=== PATIENT | female | born 1945 | race Caucasian/White ===

== ENCOUNTER 2018-07-14 07:54 | Outpatient (CLI) | payer MEDICARE, OTHER, SELFPAY ==
[2018-07-14] VITALS (7 sets, daily range): BP systolic 130–156; BP diastolic 61–80; PULSE 71–75; RESP 10–18; TEMP 36; O2SAT 95–100
--- NOTE | 2018-07-14 07:56 | DI.RAD.S_ITS ---
PROCEDURE: PAIN L/S TRANSFORAMINAL INJECT INDICATIONS: INTERVERTEBRAL DISC DEGENERATION FINDINGS: Fluoroscopic spot filming was performed to verify placement of spinal needles at the L4-L5 level(s), as labeled on the films. Appropriate location(s) of the needle tip(s) was confirmed by injection of iodinated contrast. Dictated by: Amilcar Drake M.D. on 07/14/2018 at 14:08 Approved by: Amilcar Drake M.D. on 07/14/2018 at 14:09
[2018-07-14] MEDS: MIDAZOLAM 5 MG/5 ML VIAL IV (09:10)
[2018-07-14] MEDS: methylPREDNISolone acetate 80 MG/ML VIAL INJ (09:20)
[2018-07-14] MEDS: BUPIVACAINE 0.25% (PF) VIAL 2 ML INJ (09:20)
[2018-07-14] MEDS: DEXAMETHASONE 10 MG/ML VIAL 20 MG INJ (09:20)
[2018-07-14] MEDS: IOPAMIDOL 15 ML VIAL 3 ML INJ (09:20)
--- NOTE | 2018-07-14 09:29 | P.PCN_ITS ---
Procedures Date/Time Date of procedure: 07/14/18 Time of procedure: 09:28 General Procedure description: PREOP DIAGNOSIS 1. FORMAINAL STENOSIS WITH LE SYMPTOMS POST OP DIAGNOSIS 1. FORMAINAL STENOSIS WITH LE SYMPTOMS PROCEDURES 1. FLUOROSCOPICALLY GUIDED CONTRAST CONTROLLED TRANSFORAMINAL EPIDURAL STEROID INJECTION - LEFT L4/5 PHYSICIAN: Naif Martinez DO INDICATIONS: Ashley is referred by for treatment of Foraminal Stenosis with Left LE Symptoms FINDINGS Foraminal Nerve Root Compression secondary to disc disease and facet hypertrophy DESCRIPTION OF PROCEDURE: Following denial of allergy and review of potential side effects and complications, including, but not necessarily limited to, infection, allergic reaction, local tissue breakdown, stroke, temporary or permanent nerve injury, paralysis, and possible , the patient indicated that the patient understood and agreed to proceed. An informed consent document was signed by the patient, witnessed by a nurse, and placed in the patient's chart. Additionally, other treatment options including medications, modalities, and physical therapy were reviewed with the patient. After review of previous anaesthesic history and IV conscious sedation the patient was deemed safe to proceed with todays procedure with IV conscious sedation as ASA class II designation. Safety time-out was performed to confirm patient ID, procedure to be performed and site of procedure. IV sedation was accomplished with a combination of 4mg of Versed administered by the RN after DO order, titrated to patient comfort during the course of the procedure while the patient remained responsive to all verbal commands In the prone position following sterile prep and drape of the lumbar region, the left L4/5 posterior neuroforamen was identified fluoroscopically. The skin was anesthetized via a 25-gauge 1.5-inch needle with 1% lidocaine solution. At this point, a 25-gauge 3.5-inch spinal needle was atraumatically introduced and advanced under fluoroscopic guidance through the posterior left L4/5 neuroforamen to approximately the anterior aspect of the canal. Depth was confirmed on lateral view. Following negative aspiration, injection of approximately 1.5 cc of Isovue 200 under live fluoroscopy in the AP view confirmed excellent flow along the nerve root, into the epidural space without vascular or intrathecal uptake observed Radiological data, including multiple fluoroscopic views of the lumbosacral spine, reveal a spinal needle at the left L4/5 posterior neuroforamen. Subsequent views show flow of contrast material flowing superiorly and inferiorly along the nerve root confirming epidural flow. Subsequently, a test dose of 1.5 cc of 1% lidocaine solution was administered and patient was observed for two minutes for signs or symptoms of complications , including abdominal pain, shortness of breath, bilateral upper or lower extremity weakness, nausea and vomiting, prior to steroid injection. At this point, a total of 3 cc or 20 mg of dexamethasone and 80mg Depo Medrol was injected without incident. The procedure tolerated the procedure well without signs or symptoms of complications prior to transfer to the recovery area continued monitoring without incident. The patient was then transferred to the recovery area where they were observed for an appropriate time after the injection. The patient reported a VAS score of 7 prior to the procedure and a post- procedure VAS of 0. Total Fluoroscopy Time: 20.9 seconds Total Conscious Sedation Time: 24min POST OP INSTRUCTIONS The patient was provided a Pain Log to continue to record their response to the target-specific procedure prior to follow-up visit with their referring physician. Additionally, specific post-injection care instructions and a contact number to our office were provided if concerns arise regarding possible complications associated with the procedure are suspected. Naif Martinez DO Complications: none
--- NOTE | 2018-07-14 09:35 | PC.NURSE ---
accepted care of pt in post proc room. pt in stable condition
--- NOTE | 2018-07-14 09:39 | PC.NURSE ---
pt finished and helped off the table at 0928, pt alert and able to get off table with minimal assist. taken to pre procedure room where continued monitoring with Tuyet THOMPSON
--- NOTE | 2018-07-15 17:18 | PC.NURSE ---
Follow up call made for one day post injection. I didn't talk to the patient as she had already left to go get her nails done but her said she has been reporting 0/10 pain since the injection yesterday. He did say she wrote in the margins of her pain log that mornings are always more painful for her but not this morning apparently.
== END 2018-07-14 10:09 | disposition home or self-care (01) ==
LOC: RAD 07:55
PROVIDERS: PCP Family Medicine; Visit Provider Physical Medicine & Rehabilitation
DX: M48.061 Spinal stenosis, lumbar region without neurogenic claudication (principal); M51.16 Intervertebral disc disorders with radiculopathy, lumbar region; M47.27 Other spondylosis with radiculopathy, lumbosacral region; M99.83 Other biomechanical lesions of lumbar region
CPT/HCPCS: 64483; 99152; J1040; J1100; J2250

== ENCOUNTER 2018-09-08 09:50 | Outpatient (CLI) | payer MEDICARE, OTHER, SELFPAY ==
[2018-09-08] VITALS (9 sets, daily range): BP systolic 119–158; BP diastolic 41–81; PULSE 67–73; RESP 16–18; TEMP 36.2; O2SAT 92–97
--- NOTE | 2018-09-08 | DI.RAD.S_ITS ---
PROCEDURE: PAIN SI JOINT INJECTION INDICATIONS: INTERVERTEBRAL DISC DEGENERATION FINDINGS: Fluoroscopic spot filming was performed to verify placement of spinal needles at the left sacroiliac joint level(s), as labeled on the films. Appropriate location(s) of the needle tip(s) was confirmed by injection of iodinated contrast. Dictated by: Amilcar Drake M.D. on 09/08/2018 at 11:25 Approved by: Amilcar Drake M.D. on 09/08/2018 at 11:28
[2018-09-08] MEDS: MIDAZOLAM 5 MG/5 ML VIAL IV (10:30)
[2018-09-08] MEDS: BUPIVACAINE 0.5% (PF) VIAL 2 ML INJ (10:34)
[2018-09-08] MEDS: IOPAMIDOL 15 ML VIAL 3 ML INJ (10:34)
[2018-09-08] MEDS: BETAMETHASONE 30 MG/5 ML MDV 12 MG INJ (10:35)
--- NOTE | 2018-09-08 10:37 | PC.NURSE ---
assisting pt off table and transporting to post proc area in stable condition
--- NOTE | 2018-09-08 10:44 | P.PCN_ITS ---
Procedures Date/Time Date of procedure: 09/08/18 Time of procedure: 10:43 General Procedure description: PREOP Dx: Sacroiliac joint pain/DJD POST OP DX: Sacroiliac Joint Pain/DJD Procedures: Fluoroscopic guided contrast controlled left sacroiliac joint injection Physician: Naif Martinez D.O. Indications: Ashley is referred by for treatment of left sacroiliac joint DJD Description of procedure Fluoroscopic guided, contrast controlled left sacroiliac joint injection Following denial of allergies and review of potential side effects and complications, including, but not necessarily limited to, infection, allergic reaction, local tissue breakdown, temporary as well as permanent nerve injury, paralysis, stroke and possible , the patient indicated that they understood and agreed to proceed. An informed consent was signed by the patient , witnessed by a nurse, and placed in the patient's chart. Additionally, other treatment options including modalities, medications, and physical therapy were reviewed with the patient. After review of previous anaesthesic history and IV conscious sedation the patient was deemed safe to proceed with todays procedure with IV conscious sedation as ASA class II designation. Safety time-out was performed to confirm patient ID, procedure to be performed and site of procedure. IV sedation was accomplished with a combination of 5mg of Versed administered by the RN after DO order, titrated to patient comfort during the course of the procedure while the patient remained responsive to all verbal commands. In the prone position following sterile prep and drape of the pelvic region, the hyper lucency on in the inferior aspect of the left sacroiliac joint was identified fluoroscopically the skin was anesthetized be a 25 gauge 1 eventual with approximately 2 cc of 1% lidocaine solution. At this point, a 22 gauge 3 in spinal needle was atraumatically introduced and advanced under fluoroscopic guidance into the inferior aspect of the left sacroiliac joint. Following negative aspiration, approximately 0.3 cc of Isovue-300 was injected confirming intra-articular placement without vascular uptake. Radiographic data, including multiple fluoroscopic views of the pelvis, reveals a spinal needle in the left sacroiliac joint hyper lucent zone. Subsequent view show flow contrast tear superiorly and inferiorly within the joint capsule without vascular intrathecal uptake. At this point a total of 1 cc or 0 8 of 0.5% Marcaine was combined with 1 cc of 6 mg of betamethasone was injected without incident. The patient tolerated the procedure well without signs or symptoms of complications prior to transfer to the recovery area for further monitoring. The patient was then transferred to the recovery area with a bur observed for an appropriate time after the injection. The patient reverted a vas score of 7 prior to the procedure and postprocedure vas of 1. Total fluoroscopy time: 22.7 sec Total conscious sedation time: 24 min Postop instructions The patient was provided with a pain like to continue to record the patient's response to the target specific procedure prior to the patient's follow-up visit with the referring physician. Additionally, specific post injection care instructions and a contact number to our office were provided if concerns arise regarding the possible complications associated with procedure are suspected. Naif Martinez D.O. Complications: none
--- NOTE | 2018-09-08 10:48 | PC.NURSE ---
pt returnd via w/c post procedure, is awake,sleepy,and able to get from w/c with standby assist, and resumed monitoring from marisela scott.
--- NOTE | 2018-09-08 10:55 | PC.NURSE ---
sleepy, arousable with verbal,drinkin rachel tea. spouse at bs.
--- NOTE | 2018-09-08 11:02 | PC.NURSE ---
tolerating drinking and eting cookies no vomiting
--- NOTE | 2018-09-08 11:23 | PC.NURSE ---
ambulate to bathroom with steady gait,
--- NOTE | 2018-09-09 13:50 | PC.NURSE ---
FOLLOW UP CALL MADE, SPOKE WITH FAMILY MEMBER WHO SAID PT FEELING GREAT AND BACK TO HER NORMAL SELF. I ASKED FAMILY MEMBER TO REMIND HER THAT CLINIC NUMBER IS ON PAIN LOG IF SHE HAS QUESTIONS/CONCERNS BEFORE FOLLOW UP APPT.
== END 2018-09-08 11:49 | disposition home or self-care (01) ==
LOC: RAD 09:51
PROVIDERS: PCP Family Medicine; Visit Provider Physical Medicine & Rehabilitation
DX: M53.3 Sacrococcygeal disorders, not elsewhere classified (principal); M47.898 Other spondylosis, sacral and sacrococcygeal region; M47.27 Other spondylosis with radiculopathy, lumbosacral region; M51.36 Other intervertebral disc degeneration, lumbar region
CPT/HCPCS: 27096; 99152; J0702; J2250

== ENCOUNTER 2018-10-28 09:40 | Outpatient (CLI) | payer MEDICARE, OTHER, SELFPAY ==
[2018-10-28] VITALS (8 sets, daily range): BP systolic 103–146; BP diastolic 59–88; PULSE 56–65; RESP 16–18; TEMP 36; O2SAT 95–98
--- NOTE | 2018-10-28 09:44 | DI.RAD.S_ITS ---
PROCEDURE: PAIN L/SI FACET INJ/BLK 1STL INDICATIONS: SPONDYLOSIS FINDINGS: Fluoroscopic spot filming was performed to verify placement of spinal needles at the left L4, L5, S1 level(s), as labeled on the films. Appropriate location(s) of the needle tip(s) was confirmed by injection of iodinated contrast. IMPRESSION: Successful needle tip localization adjacent to the normal course of the left L4, L5, and S1 nerve roots for medial branch rhizotomy. Dictated by: Neto Neely M.D. on 10/28/2018 at 11:23 Approved by: Neto Neely M.D. on 10/28/2018 at 11:24
[2018-10-28] MEDS: MIDAZOLAM 5 MG/5 ML VIAL IV (10:28)
[2018-10-28] MEDS: LIDOCAINE 1% 20 ML INJ 10 ML INJ (10:33)
[2018-10-28] MEDS: BUPIVACAINE 0.5% (PF) VIAL 2 ML INJ (10:33)
[2018-10-28] MEDS: IOPAMIDOL 15 ML VIAL 3 ML INJ (10:34)
[2018-10-28] MEDS: BETAMETHASONE 30 MG/5 ML MDV 12 MG INJ (10:34)
--- NOTE | 2018-10-28 10:44 | PC.NURSE ---
pt tolerated procedure and was able to get off the table with standby assist. Transferred pt via wheelchair awake and alert to pre procedure room for continued monitoring with Tuyet THOMPSON.
--- NOTE | 2018-10-28 10:50 | PM.PROC.1 ---
Procedures Date/Time Date of procedure: 10/28/18 Time of procedure: 10:50 General Procedure description: POST OP DIAGNOSIS 1. FACET ARTHROPATHY PROCEDURES 1. Left L4, L5 and S1 MB BLOCKS PHYSICIAN: DO ESTELLA Little Ashley is referred by Dr. Lomax for treatment of Left Axial LBP. DESCRIPTION OF PROCEDURE Fluoroscopically guided, contrast-controlled left L4, L5 and S1 medial branch blocks with 0.5cc of 0.5% Marcaine. Following denial of allergy and review of potential side effects and complications, including, but not necessarily limited to, infection, allergic reaction, local tissue breakdown, nerve injury, paralysis, stroke and possible , the patient indicated that the patient understood and agreed to proceed. An informed consent document was signed by the patient, witnessed by a nurse, and placed in the patient's chart. After review of previous anaesthesic history and IV conscious sedation the patient was deemed safe to proceed with todays procedure with IV conscious sedation as ASA class II designation. Safety time-out was performed to confirm patient ID, procedure to be performed and site of procedure. IV sedation was accomplished with a combination of 4mg of Versed was administered by the RN after DO order, titrated to patient comfort during the course of the procedure while the patient remained responsive to all verbal commands. In the prone position, following sterile prep and drape of the lumbar region, the left L4, L5 and S1 anatomical location of the medial branch of the dorsal ramus was identified fluoroscopically. Subsequently an anesthetic skin wheal using 1% lidocaine solution was initiated at each of the anatomical spots. Subsequently then a 22-gauge 3.5-inch spinal needle was atraumatically introduced and advanced under fluoroscopic guidance at each of the corresponding sites at the left L4, L5 and S1 MB. After negative aspiration, 0.2 cc of Isovue 200 was injected, confirming placement without vascular or intrathecal uptake. Subsequently then 0.5 cc of 0.5% Marcaine solution was injected at each of the corresponding sites at the left L4, L5 and S1 medial branch locations. The patient tolerated the procedure well without signs or symptoms of complications. The patient tolerated the procedure well without signs or symptoms of complications prior to transfer to the recovery area continued monitoring without incident. Post-procedure, the patient was monitored initiating provocative activities to measure the amount of relief from block of the facetogenic pain. The patient reported a VAS of 7 prior to the procedure and a post-procedure VAS of 1. It has been a pleasure to assist in the diagnostic and therapeutic care of your patient. Total Fluoroscopy Time: 24.8 seconds Total Conscious Sedation Time: 24min POST OP INSTRUCTIONS The patient was provided with a Pain Log to complete over the next several hours and subsequent days prior to the patient's follow up with the ordering physician. If the patient has director of global talent relief to the solution applied, then they may be a candidate for medial branch rhizotomy. The patient is aware, was provided, once again, with a Pain Log and will follow up with the referring physician for review and clinical correlation Naif Martinez DO Complications: none
--- NOTE | 2018-10-28 10:53 | PC.NURSE ---
ACCEPTED CARE IN STABLE CONDITION IN POST PROC AREA.
== END 2018-10-28 11:44 | disposition home or self-care (01) ==
PROVIDERS: PCP Family Medicine; Visit Provider Physical Medicine & Rehabilitation
DX: M47.817 Spondylosis without myelopathy or radiculopathy, lumbosacral region (principal); M99.83 Other biomechanical lesions of lumbar region
CPT/HCPCS: 64493; 64494; 99152; J0702; J1100; J2250; J3010

== ENCOUNTER 2018-12-09 10:14 | Outpatient (CLI) | payer MEDICARE, OTHER, SELFPAY ==
[2018-12-09] VITALS (10 sets, daily range): BP systolic 124–147; BP diastolic 47–93; PULSE 58–76; RESP 16–18; TEMP 36.2; O2SAT 95–100
--- NOTE | 2018-12-09 10:17 | DI.RAD.S_ITS ---
PROCEDURE: PAIN L/S MED/LAT N RFA INDICATIONS: SPONDYLOSIS FINDINGS: Fluoroscopic spot filming was performed to verify placement of spinal needles at the L4, L5, S1 level(s), as labeled on the films. Appropriate location(s) of the needle tip(s) was confirmed by injection of iodinated contrast. Dictated by: Amilcar Drake M.D. on 12/09/2018 at 12:34 Approved by: Amilcar Drake M.D. on 12/09/2018 at 12:34
[2018-12-09] MEDS: fentaNYL 100 MCG/2 ML INJ 50 MCG IV (11:23)
[2018-12-09] MEDS: MIDAZOLAM 5 MG/5 ML VIAL IV (11:23)
[2018-12-09] MEDS: LIDOCAINE 1% 20 ML INJ 10 ML INJ (11:35)
[2018-12-09] MEDS: BETAMETHASONE 30 MG/5 ML MDV 12 MG INJ (11:36)
[2018-12-09] MEDS: BUPIVACAINE 0.5% (PF) VIAL 2 ML INJ (11:36)
--- NOTE | 2018-12-09 11:52 | PC.NURSE ---
ASSISTING PT OFF TABLE AND TRANSPORTING TO POST PROC AREA IN STABLE CONDITION
--- NOTE | 2018-12-09 11:55 | P.PCN_ITS ---
Procedures Date/Time Date of procedure: 12/09/18 Time of procedure: 11:54 General Procedure description: PREOP DIAGNOSIS 1. RECALCITRANT FACET ARTHROPATHY, POST OP DIAGNOSIS 1. RECALCITRANT FACET ARTHROPATHY, PROCEDURES 1. LEFTT L4 AND L5 MEDIAL BRANCH RADIOFREQUENCY NEUROTOMY AND LEFT S1 DORSAL RAMUS RADIOFREQUENCY NEUROTOMY, PHYSICIAN: DO ESTELLA Little Ashley is referred by Dr. Lomax for treatment of facet arthropathy. DESCRIPTION OF PROCEDURE Left L4 and L5 medial branch radiofrequency neurotomy and left S1 dorsal ramus branch radiofrequency neurotomy under fluoroscopy with conscious sedation. The patient is well known to this clinic having undergone previous facet injections with good but temporary relief. The patient has experienced appropriate, concordant relief with previous facet and median branch blocks but the patient's pain has been recalcitrant to further conservative measures. Therefore, based upon the patient's relief and persistent symptoms, the patient is considered an appropriate candidate for facet rhizotomy. All of the patient's questions regarding the risks versus benefits of the procedure, including, but not limited to, bleeding, infection, temporary as well as lasting nerve injury, paralysis, stroke, and , as well treatment alternatives were answered to satisfaction. After obtaining informed consent, denial of pertinent drug allergies, as well as being made aware of the potential risks of bleeding, infection, spinal cord trauma, paralysis, temporary and permanent nerve damage, seizure, stroke, and possible , the patient was brought to the fluoroscopy suite and positioned prone on the fluoroscopy table. The lumbar region was prepped with Betadine and covered with a fenestrated drape in the usual sterile fashion. Appropriate monitors applied including pulse oximeter, pulse, and blood pressure for regular monitoring throughout the procedure. IV sedation was accomplished with a combination of 4mg of Versed and 50mcg of Fentanyl titrated to patient comfort during the course of the procedure while the patient remained responsive to all verbal commands. After local infiltration using 1% lidocaine, under fluoroscopic guidance, a 10- cm RF insulated needle with a 10-mm active tip was positioned parallel to the junction of the left sacral ala and the superior articulating process where the S1 dorsal ramus resides. Needle placement was confirmed with sensory stimulation at 50 Hz, with motor stimulation of .5v on the left which produced local stimulation without radicular component. The stimulation was then increased to 1.5v with, once again, only local multifidus stimulation without radicular component. This was then followed by two discreet lesions performed at 80 degrees Celsius for 90 seconds each. The needle was then removed and the identical procedure was performed along the length of the left L5 medial branch with motor stimulation at .7v on the leftt. The identical procedure was once again performed along the length of the left L4 medial branch with motor stimulation of .5v on the left. The patient tolerated the procedure well without signs or symptoms of complications prior to transfer to the recovery area continued monitoring without incident. The patient was then transferred to the recovery area where they were observed for an appropriate period of time after the injection. The patient was then transferred to the recovery area where they were observed for an appropriate period of time after the injection. The patient reported a VAS score of 9 prior to the procedure and a post- procedure VAS of 0. Total Fluoroscopy Time: 22.7 seconds Total Conscious Sedation Time: 34min POST OP INSTRUCTIONS The patient was provided a Pain Log to continue to record the patient's response to the target-specific procedure prior to the patient's follow-up visit with the referring physician. Additionally, specific post-injection care instructions and a contact number to our office were provided if concerns arise regarding possible complications associated with the procedure are suspected. Naif Martinez, Complications: none
--- NOTE | 2018-12-09 12:02 | PC.NURSE ---
pt returned from procedure awake and alert and able to get from W/C to chair with standby assist. Resumed monitoring from Tuyet THOMPSON.
== END 2018-12-09 12:24 ==
LOC: RAD 10:16
PROVIDERS: PCP Family Medicine; Visit Provider Physical Medicine & Rehabilitation
DX: M47.817 Spondylosis without myelopathy or radiculopathy, lumbosacral region (principal)
CPT/HCPCS: 64635; 99152; 99153; J0702; J2250; J3010

== ENCOUNTER → 2020-02-25 11:04 | Outpatient (CLI) | payer MEDICARE, OTHER, SELFPAY ==
--- NOTE | 2020-02-25 11:07 | DI.MRI.S_ITS ---
PROCEDURE: MR LUMBAR SPINE WO CON INDICATIONS: Axial low back pain TECHNIQUE: Noncontrast sagittal T1 spin echo and T2 fast echo, sagittal STIR, axial T1 and T2 fast spin echo through the lumbar spine. In cases with scoliosis, additional coronal T2 fast spin echo may be performed. COMPARISON: [facility], , L-SPINE WITHOUT CONTRAST, 10/31/2016, 15:16. FINDINGS: Image quality: Excellent. Alignment and Curvature: No plain films are available for comparison, for numbering purposes. Thus, for the purposes of this examination, 5 lumbar type vertebral bodies will be presumed, as denoted on the montage panel. This should be confirmed and correlated with plain films, prior to any lumbar spinal intervention. There is mild, grade 1 retrolisthesis of L2 on L3 and L3 on L4. Mild grade 1 anterolisthesis of L4 on L5. Bone Marrow: Marrow is of normal overall signal. No acute vertebral body compression fractures. Mild reactive signal within the endplates adjacent to the L2-L3, L3-L4, and L5-S1 intervertebral discs. Spinal Cord: Conus medullaris terminates at the lower L1 level. Visualized cord demonstrates normal signal and size. Paraspinous Soft Tissues: No paravertebral masses. L1-L2: Normal appearance. L2-L3: Mild disc desiccation. No significant canal, or foraminal stenosis. No change. L3-L4: Mild disc height loss and desiccation. Mild diffuse disc bulge. Mild facet and ligamentum flavum hypertrophy. Mild canal stenosis. Mild left greater than right foraminal stenosis. No change. L4-L5: Mild disc height loss and desiccation. Mild bilateral facet hypertrophy. No significant canal, or foraminal stenosis. No change. L5-S1: Mild disc height loss. Moderate disc desiccation. Mild diffuse disc bulge. Mild bilateral facet hypertrophy. No significant canal, or foraminal stenosis. No change. IMPRESSION: 1. Multilevel degenerative disc and facet disease, as well as ligamentum flavum hypertrophy and epidural lipomatosis. 2. Multilevel mild canal and foraminal stenosis. No neural impingement. Dictated by: Ayaan Crow M.D. on 02/25/2020 at 13:20 Approved by: Ayaan Crow M.D. on 02/25/2020 at 13:23
== END ==
PROVIDERS: PCP Family Medicine; Referring Provider Physical Medicine & Rehabilitation; Visit Provider Physical Medicine & Rehabilitation
DX: M54.5 Low back pain (principal); M51.16 Intervertebral disc disorders with radiculopathy, lumbar region; M51.17 Intervertebral disc disorders with radiculopathy, lumbosacral region; M48.061 Spinal stenosis, lumbar region without neurogenic claudication; E88.2 Lipomatosis, not elsewhere classified
CPT/HCPCS: 72148

== ENCOUNTER → 2020-04-22 11:35 | Outpatient (CLI) | payer MEDICARE, OTHER, SELFPAY ==
[2020-04-23 15:46] LABS: COVID19 Sendout Not Detected (Not Detect)
== END ==
PROVIDERS: PCP Family Medicine; Visit Provider Physician Assistant
DX: Z11.59 Encounter for screening for other viral diseases (principal)
CPT/HCPCS: 87635

== ENCOUNTER 2020-04-25 14:56 | Outpatient (CLI) | payer MEDICARE, OTHER, SELFPAY ==
[2020-04-25] VITALS (8 sets, daily range): BP systolic 127–204; BP diastolic 66–101; PULSE 60–66; RESP 12–60; TEMP 36.1; O2SAT 35–100
--- NOTE | 2020-04-25 14:58 | DI.RAD.S_ITS ---
PROCEDURE: PAIN L/SI FACET INJ/BLK 1STL INDICATIONS: SPONDYLOSIS COMPARISON: [facility], , PAIN L/SI FACET INJ/BLK 1STL, 10/28/2018, 10:41. FINDINGS: Fluoroscopic spot filming was performed to verify placement of spinal needles at the L3-4, L4-5, and L5-L6 levels on the left, as labeled on the films. Appropriate location(s) of the needle tip(s) was confirmed by injection of iodinated contrast. IMPRESSION: Intraprocedural examination within normal limits. Dictated by: Loyd Torres M.D. on 04/26/2020 at 8:41 Approved by: Loyd Torres M.D. on 04/26/2020 at 8:42
[2020-04-25] MEDS: MIDAZOLAM 5 MG/5 ML VIAL IV (15:41)
[2020-04-25] MEDS: fentaNYL 100 MCG/2 ML INJ 50 MCG IV (15:41)
[2020-04-25] MEDS: IOPAMIDOL 15 ML VIAL 3 ML INJ (15:53)
[2020-04-25] MEDS: BETAMETHASONE 30 MG/5 ML MDV 12 MG INJ (15:54)
[2020-04-25] MEDS: LIDOCAINE 1% 20 ML 10 ML INJ (15:55)
--- NOTE | 2020-04-25 16:12 | P.PCN_ITS ---
Date/Time/Diagnoses Date of procedure: 04/25/20 Time of procedure: 16:12 Pre-procedure diagnosis: 1. FACET ARTHROPATHY, 2. AXIAL LBP, 3. MULTILEVEL DDD Post-procedure diagnosis: same Procedure Notes Procedure: 1. FLUOROSCOPICALLY GUIDED CONTRAST CONTROLLED FACET JOINT INJECTIONS LEFT L4/5, L5/S1 Indications: Ashley is referred by for treatment of Axial LBP Physician: Naif Martinez Total Fluoroscopy time (seconds): 9 Total sedation minutes: 18 Complications: none Procedure in detail & Post-procedure care: FINDINGS Multilevel Facet Arthropathy with Clinically significant axial LBP DESCRIPTION OF PROCEDURE Fluoroscopically guided, contrast-controlled left L3/4, L4/5, L5/S1 facet joint injections. Following review of allergy and review of potential side effects and complications, including, but not necessarily limited to, infection, allergic reaction, local tissue breakdown, stroke, temporary or permanent nerve injury, paralysis, and possible , the patient indicated that the patient understood and agreed to proceed. An informed consent document was signed by the patient, witnessed by a nurse, and placed in the patient's chart. Additionally, other treatment options including medications, modalities, and physical therapy were reviewed with the patient. After review of previous anaesthesic history and IV conscious sedation the patient was deemed safe to proceed with today?s procedure with IV conscious sedation as ASA class II designation. Safety time-out was performed to confirm patient ID, procedure to be performed and site of procedure. IV sedation was accomplished with a combination of 4mg of Versed and 50mcg of Fentanyl was administered by the RN after DO order, titrated to patient comfort during the course of the procedure while the patient remained responsive to all verbal commands. In the prone position, following sterile prep and drape of the lumbar region, the posterior aspect of the left L3/4, L4/5, L5/S1 facet joints were identified fluoroscopically. The skin was anesthetized via a 25-gauge 1.5-inch needle with 1% lidocaine solution into the corresponding facet joints. At this point, a 22- gauge 3.5-inch spinal needle was atraumatically introduced and advanced under fluoroscopic guidance into the corresponding facet joints. Following negative aspiration, injections of approximately 0.2-cc of Isovue 200 confirmed interarticular placement without vascular uptake. Radiological data, including multiple fluoroscopic views of the lumbosacral spine, reveal a spinal needle at the left L3/4, L4/5, L5/S1 facet joints. Subsequent views show flow of contrast material both superiorly and inferiorly within the joint space without vascular or intrathecal uptake. At this point, a total of 0.5cc including a mixture of 0.25cc Marcaine and 0.25cc betamethasone was injected without complication into each of the corresponding facet joints. The procedure tolerated the procedure well without signs or symptoms of complications prior to transfer to the recovery area continued monitoring without incident. The patient was then transferred to the recovery area where they were observed for an appropriate period of time after the injection. The patient reported a VAS score of 7 prior to the procedure and a post-procedure VAS of 0. POST OP INSTRUCTIONS The patient was provided a Pain Log to continue to record their response to the target-specific procedure prior to follow-up visit with their referring physician. Additionally, specific post-injection care instructions and a contact number to our office were provided if concerns arise regarding possible complications associated with the procedure are suspected.
== END 2020-04-25 16:31 | disposition home or self-care (01) ==
LOC: RAD 14:58
PROVIDERS: PCP Family Medicine; Referring Provider Physical Medicine & Rehabilitation; Visit Provider Physical Medicine & Rehabilitation
DX: M47.816 Spondylosis without myelopathy or radiculopathy, lumbar region (principal); M47.817 Spondylosis without myelopathy or radiculopathy, lumbosacral region; M54.5 Low back pain; M51.36 Other intervertebral disc degeneration, lumbar region; M51.37 Other intervertebral disc degeneration, lumbosacral region
CPT/HCPCS: 64493; 64494; 64495; 99152; J0702; J2250; J3010

== ENCOUNTER → 2020-07-17 12:40 | Outpatient (CLI) | payer MEDICARE, OTHER, SELFPAY ==
--- NOTE | 2020-07-17 12:41 | DI.RAD.S_ITS ---
PROCEDURE: XR LUMBAR SPINE MIN 4V INDICATIONS: update imaging TECHNIQUE: 5 views of the lumbar spine were acquired. COMPARISON: [facility], [place], XR LUMBAR SPINE WITH OBLIQUES, 10/15/2017, 10:01. FINDINGS: Bones: No fracture. Mild levocurvature. Multilevel degenerative endplate sclerosis and spurring. Diffuse facet arthropathy. Trace retrolisthesis of L3 on L4. Grade 1 anterolisthesis of L4 on L5. Diffuse mild narrowing of the lumbar disc spaces. Mild bilateral hip joint degeneration. Soft tissues: Overlying bowel gas pattern is normal. No suspicious soft tissue calcifications. Oblique images: No pars defects. IMPRESSION: Multilevel lumbar spondylosis and facet arthropathy, with slight interval progression Dictated by: Amilcar Drake M.D. on 07/17/2020 at 14:08 Approved by: Amilcar Drake M.D. on 07/17/2020 at 14:10
== END ==
PROVIDERS: PCP Family Medicine; Referring Provider Physical Medicine & Rehabilitation; Visit Provider Physical Medicine & Rehabilitation
DX: M47.27 Other spondylosis with radiculopathy, lumbosacral region (principal); M47.26 Other spondylosis with radiculopathy, lumbar region; M43.16 Spondylolisthesis, lumbar region; M25.552 Pain in left hip; M16.0 Bilateral primary osteoarthritis of hip; M79.7 Fibromyalgia; M17.12 Unilateral primary osteoarthritis, left knee
CPT/HCPCS: 72110; 99214

== ENCOUNTER → 2020-08-07 14:38 | Outpatient (CLI) | payer MEDICARE, OTHER, SELFPAY ==
[2020-08-07 16:22] LABS: COVID19 -Nasal RAPID Negative (Negative)
== END ==
PROVIDERS: PCP Family Medicine; Visit Provider Physical Medicine & Rehabilitation
DX: Z01.812 Encounter for preprocedural laboratory examination (principal); Z20.822 Contact with and (suspected) exposure to COVID-19
CPT/HCPCS: 87635; C9803

== ENCOUNTER 2020-08-08 10:23 | Outpatient (CLI) | payer MEDICARE, OTHER, SELFPAY ==
[2020-08-08] VITALS (8 sets, daily range): BP systolic 163–194; BP diastolic 72–86; PULSE 56–62; RESP 14–17; TEMP 36.6; O2SAT 96–98
--- NOTE | 2020-08-08 10:27 | DI.RAD.S_ITS ---
PROCEDURE: PAIN L/S MED/LAT N RFA INDICATIONS: SPONDYLOSIS COMPARISON: None. FINDINGS: Fluoroscopic spot filming was performed to verify placement of spinal needles at the left L3, L4, L5 and S1 level(s), as labeled on the films. Appropriate location(s) of the needle tip(s) was confirmed by injection of iodinated contrast. IMPRESSION: Fluoroscopy for pain management. Dictated by: Chaya Reddy M.D. on 08/08/2020 at 12:00 Approved by: Chaya Reddy M.D. on 08/08/2020 at 12:00
[2020-08-08] MEDS: MIDAZOLAM 5 MG/5 ML VIAL IV (11:25)
[2020-08-08] MEDS: BUPIVACAINE 0.5% (PF) VIAL 5 ML INJ (11:25)
[2020-08-08] MEDS: fentaNYL 100 MCG/2 ML INJ 50 MCG IV (11:25)
--- NOTE | 2020-08-08 11:54 | P.PCN_ITS ---
Date/Time/Diagnoses Date of procedure: 08/08/20 Time of procedure: 11:54 Pre-procedure diagnosis: 1. RECALCITRANT FACET ARTHROPATHY Post-procedure diagnosis: same Procedure Notes Procedure: 1. LEFT L3, L4 AND L5 MEDIAL BRANCH RADIOFREQUENCY NEUROTOMY AND LEFT S1 DORSAL RAMUS RADIOFREQUENCY NEUROTOMY, Indications: Ashley is referred by Dr. Lomax for treatment of facet arthropathy. Physician: Naif Martinez Total Fluoroscopy time (seconds): 14 Total sedation minutes: 25 Complications: none Procedure in detail & Post-procedure care: DESCRIPTION OF PROCEDURE Left L3, L4 and L5 medial branch radiofrequency neurotomy and left S1 dorsal ramus branch radiofrequency neurotomy under fluoroscopy with conscious sedation. The patient is well known to this clinic having undergone previous facet injections with good but temporary relief. The patient has experienced appropriate, concordant relief with previous facet and median branch blocks but the patient's pain has been recalcitrant to further conservative measures. Therefore, based upon the patient's relief and persistent symptoms, the patient is considered an appropriate candidate for facet rhizotomy. All of the patient's questions regarding the risks versus benefits of the procedure, including, but not limited to, bleeding, infection, temporary as well as lasting nerve injury, paralysis, stroke, and , as well treatment alternatives were answered to satisfaction. After obtaining informed consent, denial of pertinent drug allergies, as well as being made aware of the potential risks of bleeding, infection, spinal cord trauma, paralysis, temporary and permanent nerve damage, seizure, stroke, and possible , the patient was brought to the fluoroscopy suite and positioned prone on the fluoroscopy table. The lumbar region was prepped with Betadine and covered with a fenestrated drape in the usual sterile fashion. Appropriate monitors applied including pulse oximeter, pulse, and blood pressure for regular monitoring throughout the procedure. IV sedation was accomplished with a combination of 3mg of Versed and 50mcg of Fentanyl titrated to patient comfort during the course of the procedure while the patient remained responsive to all verbal commands. After local infiltration using 1% lidocaine, under fluoroscopic guidance, a 10- cm RF insulated needle with a 10-mm active tip was positioned parallel to the junction of the left sacral ala and the superior articulating process where the S1 dorsal ramus resides. Needle placement was confirmed with sensory stimulation at 50 Hz, with motor stimulation of .5v on the left which produced local stimulation without radicular component. The stimulation was then increased to 2v with, once again, only local multifidus stimulation without radicular component. This was then followed by two discreet lesions performed at 80 degrees Celsius for 90 seconds each. The needle was then removed and the identical procedure was performed along the length of the left L5 medial branch with motor stimulation at .7v on the left. The identical procedure was once again performed along the length of the left L4 medial branch with motor stimulation of .5v on the left. The identical procedure was once again performed along the length of the left L3 medial branch with motor stimulation of .5v on the left. The patient tolerated the procedure well without signs or symptoms of complications prior to transfer to the recovery area continued monitoring without incident. The patient was then transferred to the recovery area where they were observed for an appropriate period of time after the injection. The patient was then transferred to the recovery area where they were observed for an appropriate period of time after the injection. The patient reported a VAS score of 7 prior to the procedure and a post- procedure VAS of 0. POST OP INSTRUCTIONS The patient was provided a Pain Log to continue to record the patient's response to the target-specific procedure prior to the patient's follow-up visit with the referring physician. Additionally, specific post-injection care instructions and a contact number to our office were provided if concerns arise regarding possible complications associated with the procedure are suspected.
[2020-08-08] MEDS: LIDOCAINE 1% 20 ML INJ (12:54)
== END 2020-08-08 12:05 | disposition home or self-care (01) ==
LOC: RAD 10:26
PROVIDERS: PCP Family Medicine; Referring Provider Physical Medicine & Rehabilitation; Visit Provider Physical Medicine & Rehabilitation
DX: M47.816 Spondylosis without myelopathy or radiculopathy, lumbar region (principal); M47.817 Spondylosis without myelopathy or radiculopathy, lumbosacral region
CPT/HCPCS: 64635; 64636; 99152; 99153; J2250; J3010